=== PATIENT | female | born 1940 | race Caucasian/White ===

== ENCOUNTER 2018-04-07 08:45 | Outpatient (RCR) | payer MEDICARE, SELFPAY ==
--- NOTE | 2018-03-24 09:46 | NT_ITS ---
March 24, 2018 Valerie cancelled todays scheduled appt due to conflict in schedule. Reappointed for later date.
--- NOTE | 2018-03-30 09:23 | PTTR_ITS ---
DATE: 03/30/18 SUBJECTIVE: Valerie states that her back/ leg pain is slowly getting better. Her shlds are about the same. She really likes the pulleys and feels as though they are helpful. OBJECTIVE: Manual therapy: ([id number]). mobilizations of bilateral GH jt including posterior and inferior glides, caudal and lateral distractions. P/AAROM. CFM over anterior cuffs and STM t/o posterior cuff. PRT's of infraspinatus and teres region. LE distractions via leg pulls. Lumbopelvic ROM including SKTC, rotation in hooklying. Stretching of hamstring, ITB and piriformis. Therapeutic procedures ([id number]). * x See flow sheet: via wellness for AAROM and scap stabilizations. * x Ultrasound - (x 10 mins) - [id number]: to bilateral greater tuberosities x 5 min each at 50%pulsed, 1.1 w/cm2 and 3 MHZ Direct treatment time: 45 min Total treatment time: 60 min
--- NOTE | 2018-04-02 16:13 | PTTR_ITS ---
DATE: 04/02/18 SUBJECTIVE: Valerie arrived today with complaints that she continues to have significant pain in bilateral shoulders and right hip / thigh region. States that she has actually been having slight irritation in the left sided thigh region as well. Overall, feels like she is able to move her shoulders within a greater ROM. OBJECTIVE: Manual therapy: ([id number]). Did receive mobs of bilateral glenohumeral joints consisting of anterior and posterior glides, caudal distraction and AAROM throughout all planes. TFM was performed to the anterior cuff as well as positional release techniques to the posterior cuff while in supine. She also rec'd mobs of the right LE consisting of unilateral leg pulls as well as single knee to chest stretching and hook lying lumbar rotational stretching. Stretching of the hamstrings, IT bands and piriformis was also performed x3 repetitions x20 to 30 seconds each. Did perform 15 minutes of Wellness with assisted personnel at no charge. Ended treatment with cryotherapy to bilateral shoulders and moist heat to the low back x10 minutes while seated at no charge. * [x] Ultrasound - (x 5 mins) - [id number]: applied to bilateral anterior cuffs x5 each @3 megahertz 50% duty cycle @1.0 watt per cm sq while seated Direct treatment time: 45 minutes Total treatment time: 70 minutes SG/gc
--- NOTE | 2018-04-07 08:45 | PTTR_ITS ---
DATE: April 07, 2018 SUBJECTIVE: Valerie reports that she has made little to no gains since coming to PT. She is very frustrated with the amount of global joint pain and stiffness that she is having. Transfers are very difficult for her secondary to pain and inability to push herself up with her arms. She reports occasional fevers. She declines any tingling or numbness. She is sleeping very poorly secondary to being unable to get comfortable in any position. Pain number: 7/10 on VAS Pain Local: bilateral shoulders left greater then right, bilateral hips, LBP that radiates to bilateral calves. Current level of function: Limited ADL's secondary to pain. She reports of global arthralgias throughout her entire body. She is unable to lift anything, difficulty reaching away from her body. Limited transfers secondary to pain and stiffness. Has stopped bowling secondary to her irritation. Compliant with HEP: Yes , continues with ice and heat for pain reduction with minimal to no benefit. She is currently utilizing home ranger pulleys for ROM of her UE's. She continues to take her prescribed Ibp 800 mg with no relief. OBJECTIVE: Manual therapy: ([id number]).Upon reassessment demonstrates active glenohumeral flexion right 140 degrees, left 120 degrees with painful arc. Abduction right 90 degrees, left 75 degrees, IR functional reach right T9, left T10, ER 20 degrees bilaterally. PROM also remains limited secondary to pain and guarding throughout all planes. Active lumbar forward bend fingertips 2 inches below patella. Extension 20 degrees, Sidebending 2 inches above lateral joint line, Rotation limited by 50%. Her gait is non-antalgic without assistive device however slow with widened base of support. Strength: UE GH flexion right 4+/5, left 4-/5 with pain; abduction right 4/5, left 4-/5 with pain, ER right 3+/5, left 3+/5 with pain bilaterally, IR right 4 /5, left 4-/5 with pain. Bicep 4/5, Tricep 4/5 with pain. LE strength hip flexion 4+/5, knee extension 5/5, knee flexion 5/5, DF/PF 5/5. She is able to heel and toes walk with hand held assist for balance without difficulty. Neuro: Intact light touch. Declines paresthesias. Special Tests: + Empty can bilaterally, + Speeds left, - SLR for dural tension , Treatment: Reviewed HEP. Due to global arthralgias with minimal improvements have recommended follow up consultation with her PCP. Feel that further intervention is needed at this time. No formal follow up is set. She is going to contact her PCP upon leaving clinic today. She does have a scheduled follow up later next week. Going to see if they can get her in sooner. She will contact us to reschedule if needed. If no formal contact is made over the course of the next month duration will consider her discharged from our care at this time. Patient is also in agreement with this plan. Direct one on one 25 minutes Total Treatment 25 minutes
== END 2018-04-23 23:59 | disposition home or self-care (01) ==
LOC: PT 08:45
PROVIDERS: PCP Nurse Practitioner Family; Referring Provider Nurse Practitioner Family; Visit Provider Nurse Practitioner Family
DX: M75.41 Impingement syndrome of right shoulder (principal); M75.42 Impingement syndrome of left shoulder; G57.01 Lesion of sciatic nerve, right lower limb; M65.811 Other synovitis and tenosynovitis, right shoulder
CPT/HCPCS: 97035; 97140

== ENCOUNTER 2018-04-14 09:23 | Emergency (ER) | payer MEDICARE, SELFPAY ==
[2018-04-14 09:27] VITALS: BP 131/102; PULSE 86; RESP 18; TEMP 36.7; O2SAT 97
--- NOTE | 2018-04-14 10:27 | ED.GENADUL ---
Disposition Clinical Impression: Joint pain Disposition: HOME Condition: Fair Instructions: Musculoskeletal Pain (ED) Additional Instructions: Encourage hydration. Gentle stretching and frequent ambulation as advised by physical therapy. Please take Tylenol and ibuprofen as prescribed. Please keep upcoming appointment with your primary care. If you develop fever/chills, increased pain or other new/worsening symptoms please seek care urgently once again. We will contact you with any positive results from the screening of tickborne illnesses. Prescriptions: Acetaminophen [Tylenol Extra Strength] 1,000 mg PO QID PRN #20 tab PRN Reason: Pain Ibuprofen 600 mg PO QID PRN #20 tablet PRN Reason: Referrals: Yojana Stahl [Primary Care Provider] - Medical Decision Making - Lab Data Laboratory Tests 04/14/18 04/14/18 10:50 10:50 WBC 10.57 RBC 4.02 Hgb 12.4 Hct 37.0 MCV 92.0 MCH 30.8 MCHC 33.5 RDW 12.4 Plt Count 321 MPV 9.7 Immature Gran % 0.0 Neutrophils % 74.0 Lymphocytes % 16.0 Monocytes % 4.0 Eosinophils % 1.0 Basophils % 1.0 Absolute Neutrophils 7.93 H Band Neutrophils 1.0 Absolute Lymphocytes 2.01 Absolute Monocytes 0.42 Absolute Eosinophils 0.11 Absolute Basophils 0.11 Differential Comment Manual differential Atypical Lymphocytes 3 RBC Morphology Normal ESR 57 H Sodium 135 L Potassium 3.7 Chloride 100 Carbon Dioxide 27.3 Anion Gap 7.7 BUN 10 Creatinine 0.82 Estimated GFR/1.73 m2 >= 60.00 Glucose 106 H Calcium 9.1 Total Bilirubin 0.6 AST 19 ALT 27 Alkaline Phosphatase 84 C-Reactive Protein 1.87 H Total Protein 8.3 H Albumin 3.6 Results reviewed for labs ordered during visit: Yes - Medical Decision Making Patient presents today with chief complaint of global joint discomfort. Patient is endorsing pain in bilateral shoulders, upper extremities, hands, wrists, bilateral knees. Is also endorsing sciatica on the right side. Reports that she has been evaluated by primary care. There have been concerned for impingement syndrome of bilateral shoulders per patient report. They had also noticed sciatica at that time. Patient appears nontoxic. Vital signs are within normal limits. I did question her on possible tick exposures. She is unaware of any tick bites. She denies any rashes. No recent illness. Patient reports that primary care did perform laboratory testing 1 month ago. At that time, no Lyme panel was performed. We will obtain this today also include an ESR and CRP. I do not see any acute joint swelling. Patient feels that her hands are swollen but she does continue to wear her rings. No rashes noted. She will be given Tylenol and ibuprofen help with discomfort. Patient had questioned need for imaging of her multiple areas of discomfort. However, as she has not had any trauma and pain is so diffuse, I do not feel that this is appropriate or warranted at this time. Laboratory evaluation significant for CRP of 1.87, ESR 57. No leukocytosis. I discussed these findings with the patient and her family. I also contacted patient's primary care and advised him on her minimally elevated inflammatory markers. I do not see any acute abnormalities today. Patient was given ibuprofen and Tylenol and feels much improved. She is able to ambulate at this time unassisted. She is quite happy with the level of relief she has obtained while here. Advised she continue with this at home. A prescription will be given for ibuprofen and Tylenol at her request. At this point, as she responded so well I do not feel that stronger pain medication is indicated. Patient is in agreement with this plan. She has an appointment next week with primary care at which time she will discuss her diffuse discomfort further. Tick panel is still pending. Will call her with any positive results. We discussed new/worsening symptoms and when to seek care urgently once again. All of her questions and concerns were addressed and she is in agreement with this plan. History of Present Illness - General Chief complaint: Orthopedic Stated complaint: UNKNOWN Time Seen by Provider: 04/14/18 10:09 Source: patient, family, RN notes reviewed Mode of arrival: ambulatory Limitations: no limitations - History of Present Illness Initial comments: Patient is a 77-year-old female presenting today, coming by her granddaughter, with chief complaint of pain. Patient reports that for the past 1-2 months she has had fairly diffuse pain. States that initially began in the shoulders, left worse than right as well as right-sided sciatica. Reports that over the past 2 months the pain is progressively increased. She is now endorsing discomfort that radiates down her upper extremities. As noted pain in her wrists and hands. States that she is now having pain in bilateral knees. She denies any rash. No recent illness. No fevers or chills. Was seen by her primary care last month who advised physical therapy. Patient was last seen by physical therapy on 04/07/2018. At that point Valerie reports that she has made little to no pain since coming to PT. She is very frustrated with the amount of global joint pain stiffness she is having.. They reported that ambulation was difficult for her and she was having difficulty getting herself into an upright position from sitting. Patient was taking 800 mg ibuprofen as prescribed by primary care but reports that she ran out 4 days ago. Feels that the ibuprofen is doing a little to help with her discomfort. However, since cessation of the medication she reports that pain has greatly increased. States that she had to have assistance to stand up this morning. Granddaughter is able to help her. Patient reports she has an appointment with primary care next week. - Related Data Levothyroxine Sodium 88 mcg PO DAILY 08/28/13 Trazodone HCl 50 mg PO HS 08/28/13 Metoprolol/Hydrochlorothiazide [Metoprolol-Hctz 50-25 mg Tab] 0.5 tab PO BID 06/26/17 Oxybutynin Chloride [Ditropan Xl] 10 mg PO BID 06/26/17 Acetaminophen [Tylenol Extra Strength] 1,000 mg PO QID PRN #20 tab 04/14/18 Ibuprofen 600 mg PO QID PRN #20 tablet 04/14/18 Allergies Allergy/AdvReac Type Severity Reaction Status Date / Time No Known Allergies Allergy Unverified 04/14/18 09:32 Review of Systems Constitutional: no symptoms reported, see HPI. denies: chills, fever, malaise, weakness (Patient reports she has had difficulty with ambulation, particularly today, but associates this with the pain not extremity weakness. No weakness was noted on exam.) Respiratory: no symptoms reported Cardiovascular: denies: chest pain, palpitations Gastrointestinal: denies: abdominal pain, nausea, vomiting Genitourinary: denies: urgency (Denies change in urinary habits) Musculoskeletal: as per HPI Skin: denies: rash, lesions Neurological: as per HPI, abnormal gait. denies: headache, weakness, numbness, paresthesias Past Medical History - Past Medical History Medical history: AFIB, hyperlipidemia, hypertension Hypothyroidism,Dementia, osteopenia, Psychiatric history: depression General Exam - General Limitations: no limitations General appearance: alert, in no apparent distress - Head Head exam: Present: atraumatic - Eye Eye exam: Present: normal apperance - Neck Neck exam: Present: normal inspection - Respiratory Respiratory exam: Present: normal lung sounds bilaterally. Absent: respiratory distress - Cardiovascular Cardiovascular Exam: Present: regular rate, normal rhythm, normal heart sounds - Extremities Exam Extremities exam: Present: tenderness (Patient has diffuse discomfort with palpation about the extremities, particularly the upper extremities around the shoulders. Range of motion is limited secondary to discomfort), normal capillary refill. Absent: normal inspection, full ROM, joint swelling (No swelling or discoloration is appreciated on exam) - Back Exam Back exam: Present: tenderness (Diffuse discomfort with palpation. Seems to be primarily lower back. No midline discomfort) - Neurological Exam Neurological exam: Present: alert, abnormal gait (Patient is currently in a wheelchair). Absent: motor sensory deficit (No saddle paresthesias. 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
[2018-04-14] MEDS: Ibuprofen 600 MG TAB PO (10:31)
[2018-04-14] MEDS: Acetaminophen 500 MG TAB 1000 MG PO (10:32)
[2018-04-14 11:00] LABS: HGB 12.4 g/dL (12.0-15.5); Mean Corp. HGB Concentration 33.5 g/dL (32.0-36.0); Mean Corpuscular Hemoglobin 30.8 pg (27.0-33.0); Mean Platelet Volume 9.7 fL (8.0-11.0); Platelet Count 321 x1000/uL (130-400); RBC 4.02 m/cumm (4.00-5.20); RBC Distribution Width 12.4 % (11.7-14.6); White Blood Cell Count 10.57 k/cumm (4.4-10.8)
[2018-04-14 11:08] LABS: ALT 27 U/L (12-78); AST 19 U/L (15-37); Albumin 3.6 g/dL (3.4-5.0); Alkaline Phosphatase 84 U/L (46-116); Anion Gap 7.7 mmol/L (3-11); BUN 10 mg/dL (7-18); Bilirubin, Total 0.6 mg/dL (0.2-1.0); C-Reactive Protein 1.87 mg/dL (0.0-0.3); CO2 27.3 mmol/L (21.0-32.0); CREATININE 0.82 mg/dL (0.55-1.02); Calcium 9.1 mg/dL (8.5-10.1); Chloride 100 mmol/L (98-107); Glucose 106 mg/dL (70-100); Potassium 3.7 mmol/L (3.5-5.1); Sodium 135 mmol/L (136-145); Total Protein 8.3 g/dL (6.4-8.2)
[2018-04-14 11:27] LABS: Absolute Basophil Count 0.11 k/cumm (0.0-0.2); Absolute Eosinophil Count 0.11 k/cumm (0.0-0.7); Absolute Lymphocyte Count 2.01 k/cumm (1.2-3.4); Absolute Monocyte Count 0.42 k/cumm (0.11-0.7); Absolute Neutrophil Count 7.93 k/cumm (1.2-6.7); Atypical Lymphocytes % 3
[2018-04-14 11:28] LABS: Diff Comment Manual Differential; RBC Morphology Normal
[2018-04-14 11:37] LABS: ESR 57 MM/HR (0-30)
[2018-04-14 12:38] VITALS: BP 129/85; PULSE 79; RESP 16; TEMP 37; O2SAT 98
[2018-04-15 14:40] LABS: Lyme Ab w Rflx to Lyme Confirm Negative
[2018-04-16 01:33] LABS: Anaplasma phagocytophilum Negative (Negative); B. miyamotoi PCR Negative (Negative); Babesia divergens/MO-1 Negative (Negative); Babesia duncani Negative (Negative); Babesia microti Negative (Negative); Ehrlichia chaffeensis Negative (Negative); Ehrlichia ewingii/canis Negative (Negative); Ehrlichia muris eauclairensis Negative (Negative)
== END 2018-04-14 12:44 | disposition home or self-care (01) ==
PROVIDERS: Physician Assistant; Emergency Provider Physician Assistant; PCP Nurse Practitioner Family
DX: M25.50 Pain in unspecified joint (principal); I10 Essential (primary) hypertension
CPT/HCPCS: 99282; 99283; 36415; 80053; 85652; 85025; 86140; 86618; 87798

== ENCOUNTER → 2018-04-20 13:10 | Outpatient (CLI) | payer MEDICARE, SELFPAY ==
[2018-04-21 10:19] LABS: Rheumatoid Factor <8 IU/mL (<12.5)
== END ==
PROVIDERS: PCP Nurse Practitioner Family; Visit Provider Nurse Practitioner Family
DX: M25.511 Pain in right shoulder (principal); M25.512 Pain in left shoulder
CPT/HCPCS: 36415; 86431

== ENCOUNTER 2018-09-20 11:44 | Outpatient (CLI) | payer MEDICARE, SELFPAY ==
[2018-09-20 12:50] LABS: HCT 42.7 % (36.0-46.0); HGB 14.5 g/dL (12.0-15.5); Mean Corpuscular Hemoglobin 32.2 pg (27.0-33.0); Mean Corpuscular Volume 94.7 fL (80-95); Mean Platelet Volume 10.4 fL (8.0-11.0); Platelet Count 271 x1000/uL (130-400); RBC 4.51 m/cumm (4.00-5.20); RBC Distribution Width 12.4 % (11.7-14.6); White Blood Cell Count 8.53 k/cumm (4.4-10.8)
[2018-09-20 12:59] LABS: ESR 15 MM/HR (0-30)
[2018-09-20 13:01] LABS: BUN 20 mg/dL (7-18); CREATININE 1.01 mg/dL (0.55-1.02); Calcium 9.4 mg/dL (8.5-10.1); Glucose 182 mg/dL (70-100)
[2018-09-20 13:02] LABS: ALT 49 U/L (12-78); AST 28 U/L (15-37); Albumin 3.7 g/dL (3.4-5.0); Alkaline Phosphatase 69 U/L (46-116); Anion Gap 10.8 mmol/L (3-11); Bilirubin, Total 0.4 mg/dL (0.2-1.0); C-Reactive Protein 0.55 mg/dL (0.0-0.3); CO2 28.2 mmol/L (21.0-32.0); Chloride 102 mmol/L (98-107); Estimated GFR 53.29 (mL/min/1.73m2); Potassium 3.8 mmol/L (3.5-5.1); Sodium 141 mmol/L (136-145); Total Protein 7.3 g/dL (6.4-8.2)
== END 2018-09-20 12:04 ==
PROVIDERS: PCP Nurse Practitioner Family; Visit Provider Internal Medicine Rheumatology
DX: M35.3 Polymyalgia rheumatica (principal); Z79.52 Long term (current) use of systemic steroids
CPT/HCPCS: 36415; 80053; 85027; 85652; 86140

== ENCOUNTER 2018-12-08 14:05 | Outpatient (REF) | payer MEDICARE, SELFPAY ==
[2018-12-08 19:02] LABS: Bilirubin Negative (Negative); Blood Trace-lysed (Negative); Clarity Sl Cloudy; Glucose Negative (Negative); Ketones Negative (Negative); Leukocyte Esterase Trace (Negative); Nitrite Positive (Negative); Specific Gravity 1.025 (1.005-1.025); Urobilinogen 0.2 EU/dL (Up TO 0.2); pH 5.5 (5-8)
[2018-12-08 19:10] LABS: Bacteria Many HPF (Negative); C & S Indicated? Yes; WBC 20-50 HPF (0-5)
== END 2018-12-08 14:25 ==
LOC: NCHCN 14:05
PROVIDERS: PCP Nurse Practitioner Family; Visit Provider Nurse Practitioner Family
DX: R30.0 Dysuria (principal)
CPT/HCPCS: 87077; 81003; 81015; 87086; 87186

== ENCOUNTER 2019-01-03 12:11 | Outpatient (CLI) | payer MEDICARE, SELFPAY ==
[2019-01-03 12:58] LABS: HCT 41.1 % (36.0-46.0); Mean Corp. HGB Concentration 34.1 g/dL (32.0-36.0); Mean Corpuscular Hemoglobin 32.1 pg (27.0-33.0); Mean Corpuscular Volume 94.3 fL (80-95); Mean Platelet Volume 10.5 fL (8.0-11.0); Platelet Count 245 x1000/uL (130-400); RBC 4.36 m/cumm (4.00-5.20); RBC Distribution Width 12.1 % (11.7-14.6); White Blood Cell Count 8.06 k/cumm (4.4-10.8)
[2019-01-03 13:19] LABS: ALT 75 U/L (12-78); AST 40 U/L (15-37); Albumin 3.8 g/dL (3.4-5.0); Alkaline Phosphatase 63 U/L (46-116); Anion Gap 9.8 mmol/L (3-11); BUN 25 mg/dL (7-18); Bilirubin, Total 0.4 mg/dL (0.2-1.0); C-Reactive Protein 0.23 mg/dL (0.0-0.3); CO2 27.2 mmol/L (21.0-32.0); Calcium 9.6 mg/dL (8.5-10.1); Chloride 101 mmol/L (98-107); Estimated GFR 53.91 (mL/min/1.73m2); Glucose 136 mg/dL (70-100); Potassium 4.1 mmol/L (3.5-5.1); Sodium 138 mmol/L (136-145); Total Protein 7.4 g/dL (6.4-8.2)
[2019-01-03 14:00] LABS: ESR 10 MM/HR (0-30)
== END 2019-01-03 12:31 ==
PROVIDERS: PCP Nurse Practitioner Family; Visit Provider Internal Medicine Rheumatology
DX: M35.3 Polymyalgia rheumatica (principal); Z79.52 Long term (current) use of systemic steroids
CPT/HCPCS: 36415; 80053; 85027; 85652; 86140

== ENCOUNTER 2019-02-07 01:38 | Outpatient (CLI) | payer MEDICARE, SELFPAY ==
--- NOTE | 2019-02-07 09:41 | DI.CT_ITS ---
SYMPTOM/DIAGNOSIS: RECURRENT UTI N39.[address] ABDOMEN AND PELVIS: Comparison is made with 22 February 2011. Images were performed from the lung bases through the ischial tuberosities without IV or oral contrast. The heart size is normal. Coronary artery calcifications are seen. The lung bases are clear. The liver shows extremely low density consistent with fatty infiltration. No focal liver lesions are seen. The patient is status post cholecystectomy. There is no biliary dilatation. There is a small hiatal hernia. The appendix appears normal There are several diverticula in the descending and sigmoid colon but no evidence of diverticulitis. The patient is status post hysterectomy. The urinary bladder is empty and not well evaluated. There is a suggestion of diffuse wall thickening and trabeculation. No renal calculi or hydronephrosis is seen. There is no evidence of a renal mass or perinephric collection. The adrenals, spleen and pancreas are unremarkable. The aorta shows calcification and is normal in diameter. IMPRESSION: 1. Diffuse bladder wall thickening and trabeculation. The bladder is suboptimally evaluated as it is nearly empty. 2. Extreme fatty infiltration of the liver.
== END 2019-02-07 01:58 ==
PROVIDERS: PCP Nurse Practitioner Family; Visit Provider Urology
DX: N39.0 Urinary tract infection, site not specified (principal); N32.89 Other specified disorders of bladder; K76.0 Fatty (change of) liver, not elsewhere classified; K44.9 Diaphragmatic hernia without obstruction or gangrene
CPT/HCPCS: 74176

== ENCOUNTER 2019-03-01 14:42 | Outpatient (REF) | payer MEDICARE, SELFPAY ==
[2019-03-01 18:54] LABS: HCT 41.1 % (36.0-46.0); HGB 14.2 g/dL (12.0-15.5); Mean Corp. HGB Concentration 34.5 g/dL (32.0-36.0); Mean Corpuscular Hemoglobin 32.2 pg (27.0-33.0); Mean Corpuscular Volume 93.2 fL (80-95); Mean Platelet Volume 11.4 fL (8.0-11.0); Platelet Count 189 x1000/uL (130-400); RBC 4.41 m/cumm (4.00-5.20); RBC Distribution Width 12.2 % (11.7-14.6); White Blood Cell Count 7.12 k/cumm (4.4-10.8)
[2019-03-01 19:20] LABS: ALT 95 U/L (12-78); AST 47 U/L (15-37); Albumin 3.8 g/dL (3.4-5.0); Alkaline Phosphatase 73 U/L (46-116); Anion Gap 13.2 mmol/L (3-11); BUN 18 mg/dL (7-18); Bilirubin, Total 0.3 mg/dL (0.2-1.0); C-Reactive Protein 0.21 mg/dL (0.0-0.3); CO2 23.8 mmol/L (21.0-32.0); CREATININE 0.85 mg/dL (0.55-1.02); Calcium 9.4 mg/dL (8.5-10.1); Chloride 102 mmol/L (98-107); Glucose 163 mg/dL (70-100); Potassium 3.6 mmol/L (3.5-5.1); Sodium 139 mmol/L (136-145); TSH (W/Ref FT4) 1.13 uIU/mL (0.358-3.74); Total Protein 7.3 g/dL (6.4-8.2)
[2019-03-01 19:42] LABS: ESR 17 MM/HR (0-30)
== END 2019-03-01 15:02 ==
LOC: NCHCN 14:42
PROVIDERS: PCP Nurse Practitioner Family; Visit Provider Nurse Practitioner Family
DX: E03.9 Hypothyroidism, unspecified (principal); I10 Essential (primary) hypertension; M35.3 Polymyalgia rheumatica
CPT/HCPCS: 80053; 85027; 85652; 84443; 86140

== ENCOUNTER 2019-08-30 14:57 | Outpatient (REF) | payer MEDICARE, SELFPAY ==
[2019-08-30 19:12] LABS: PROTEIN < 6.0 mg/dL
[2019-08-30 19:16] LABS: COMMENT (LAB VIEW ONLY) 20.96 mg/dL; Microalb ug/mg Crea 9.5 ug/mg Cr
[2019-08-30 19:20] LABS: COMMENT (LAB VIEW ONLY) 22.24 mg/dL
== END 2019-08-30 15:17 ==
LOC: NCHCN 14:57
PROVIDERS: PCP Nurse Practitioner Family; Visit Provider Nurse Practitioner Family
DX: I10 Essential (primary) hypertension (principal)
CPT/HCPCS: 82043; 82565; 82570; 84156

== ENCOUNTER 2020-05-14 11:59 | Outpatient (REF) | payer MEDICARE, SELFPAY ==
[2020-05-14 19:01] LABS: Abs Immature Grans 0.02 10^3/uL (0.0-0.06); Absolute Basophil Count 0.05 10^3/uL (0.0-0.2); Absolute Eosinophil Count 0.22 10^3/uL (0.0-0.7); Absolute Lymphocyte Count 2.06 10^3/uL (1.2-3.4); Absolute Neutrophil Count 4.38 10^3/uL (1.2-6.7); Basophils % 0.7; HCT 40.7 % (36.0-46.0); HGB 13.8 g/dL (11.2-15.7); Immature Grans % 0.3; Lymphocytes % 28.5; MCH 31.5 pg (27.0-33.0); MCHC 33.9 % (32.0-36.0); MCV 92.9 fL (80-95); MPV 11.6 fL (8.0-11.0); Monocytes % 6.9; Neutrophils % 60.6; Nucleated RBC 0 %; Platelet Count 300 10^3/uL (130-400); RBC 4.38 10^6/uL (3.93-5.22); RDW 11.9 % (11.7-14.6); RDW-SD 40.9 fL; WBC 7.23 10^3/uL (4.4-10.8)
[2020-05-14 19:23] LABS: ALT 94 U/L (14-59); AST 138 U/L (15-37); Albumin 3.5 g/dL (3.4-5.0); Alkaline Phosphatase 83 U/L (46-116); BUN 10 mg/dL (7-18); Bilirubin, Total 0.6 mg/dL (0.2-1.0); CREATININE 0.87 mg/dL (0.55-1.02); Chloride 101 mmol/L (98-107); Glucose 162 mg/dL (74-106); Potassium 3.4 mmol/L (3.5-5.1); Sodium 138 mmol/L (136-145); TSH (W/Ref FT4) 4.56 uIU/mL (0.36-3.74); Total Protein 7.6 g/dL (6.4-8.2)
== END 2020-05-14 12:19 ==
LOC: NCHCN 11:59
PROVIDERS: PCP Nurse Practitioner Family; Visit Provider Nurse Practitioner Family
DX: I10 Essential (primary) hypertension (principal); E03.9 Hypothyroidism, unspecified; L98.8 Other specified disorders of the skin and subcutaneous tissue
CPT/HCPCS: 80053; 87077; 84439; 84443; 85025; 87070; 87186; 87205

== ENCOUNTER 2020-06-28 00:37 | Outpatient (CLI) | payer MEDICARE, SELFPAY ==
--- NOTE | 2020-06-28 | DI.CT_ITS ---
EXAM: CT CHEST W CLINICAL HISTORY: SMOKER,F17.201,ANOREXIA,R63.0,NIGHT SWEATS,R61,DYSPNEA,R06.00 TECHNIQUE: Imaging Protocol: Axial computed tomography images with coronal and sagittal reformatted images were created and reviewed CONTRAST MATERIAL: Intravenous: Omnipaque 350 Contrast volume:70 mL. COMPARISON: CT CT ABDOMEN PELVIS WO from 02/07/2019 FINDINGS: Tracheobronchial tree: Patent where visualized. Mediastinum and Alexandra: No dominant adenopathy or fluid collection. Small hiatal hernia. Pulmonary parenchyma: No consolidation or dominant measurable mass. No architectural distortion. Pleura: No effusion or pneumothorax. Heart: The heart is not dilated. Moderate coronary artery calcification is present. There is calcifi cation of both the mitral and aortic valves. No significant pericardial effusion is present. Aorta: Thoracic aorta non-dilated. Atherosclerosis. Upper abdomen: Diffuse fatty infiltration of the liver. Status post cholecystectomy. The common du ct measures 1.2 cm. This is unchanged compared to the CT scan from 02/07/2019. This likely is due to the post cholecystectomy state. Lymph nodes: Within normal limits. Bones: Degenerative changes are present in the spine. Soft tissues: Unremarkable. IMPRESSION: 1. No evidence of a pulmonary mass or thoracic adenopathy. 2. Hepatic steatosis. Status post cholecystectomy. 3. Atherosclerosis and coronary artery calcifications. RADIATION DOSE DELIVERED: 803.84mGy.cm Total DLP DATA REPOSITORY: All CT scans at this facility are submitted to the National Radiology Data Registry (NRDR) Dose Index Registry (DIR) with the [employer] (ACR). RADIATION OPTIMIZATION: All CT scans at this facility use at least one of these dose optimization te chniques: automated exposure control; mA and/or kV adjustment per patient size (includes targeted exa ms where dose is matched to clinical indication); or iterative reconstruction.
[2020-06-28] MEDS: Normal Saline - Diluent 50 ML VIAL IV (15:46)
[2020-06-28] MEDS: Omnipaque 350 MG/ML 100 ML BTL 70 ML IJ (15:46)
[2020-06-29 15:59] LABS: Creatine Kinase 89 U/L (26-192)
== END 2020-06-28 00:57 ==
PROVIDERS: PCP Nurse Practitioner Family; Visit Provider Nurse Practitioner Family
DX: R06.00 Dyspnea, unspecified (principal); F17.201 Nicotine dependence, unspecified, in remission; R61 Generalized hyperhidrosis; R63.0 Anorexia; K76.0 Fatty (change of) liver, not elsewhere classified; I25.10 Atherosclerotic heart disease of native coronary artery without angina pectoris; R79.89 Other specified abnormal findings of blood chemistry
CPT/HCPCS: 82550; 71260; 82565; J3490

== ENCOUNTER 2020-08-06 08:48 | Day surgery (SDC) | payer MEDICARE, SELFPAY ==
[2020-08-06 09:24] VITALS: BP 130/80; PULSE 86; RESP 16; TEMP 36.3; O2SAT 96
[2020-08-06] MEDS: Tropicam./Phenyleph. (1/2.5%) 5 ML BTL ×3 (09:32→09:42)
[2020-08-06] MEDS: Duovisc Viscoelastic System EACH 1 EACH (10:39)
[2020-08-06] MEDS: Balanced Salt Soln.-PLUS 500 ML BAG (10:39)
[2020-08-06] MEDS: Lidocaine 1% Pres-Free 5 ML VIAL (10:40)
[2020-08-06] MEDS: Lidocaine 2% Jelly 6 ML SYR (10:41)
[2020-08-06] MEDS: Povidone-Iodine Ophth 30 ML BTL (10:42)
[2020-08-06] MEDS: Tetracaine 0.5% 4 ML BTL (10:43)
--- NOTE | 2020-08-06 11:07 | W.PM.DSUDISC ---
Discharge Plan Disposition Patient Disposition: HOME Condition: Good Discharge Details Attending Provider: Nathanael Mendez Primary Care Provider: Miguel Escamilla Home Meds and New Rx's Prescriptions: No Action trazodone 100 MG tablet 50 mg PO HS RF: 0 levothyroxine 88 MCG tablet 88 mcg PO DAILY RF: 0 oxybutynin chloride [Ditropan XL] 10 MG tablet extended release 24hr 50 mg PO DAILY RF: 0 metoprolol ta-hydrochlorothiaz 1 EACH tablet 0.5 tab PO BID RF: 0 prednisolone 5 mg Tablet 5 mg RF: 0 acetaminophen [Mapap Extra Strength] 500 MG tablet 1,000 mg PO QID PRN (Reason: Pain) Qty: 20 RF: 0 ibuprofen 600 MG tablet 600 mg PO QID PRNQty: 20 RF: 0 Discharge Instructions Stand Alone Forms: Post-op Topical Cataract, Rebeca Latif (DSU) Discharge Orders Discharge Orders: Discharge Order (Routine); Ordered 08/06/20 Ordered By: Nathanael Mendez DS: Diagnosis Discharge Diagnosis (1) Nuclear sclerotic cataract of right eye: Status: Resolved
--- NOTE | 2020-08-06 11:08 | W.PM.OP ---
Date of service: 08/06/20 Time of Service: 11:08 Operative Note Operative Note DATE OF PROCEDURE: 08/06/20 PRE-OP DIAGNOSIS: Nuclear cataract, right eye POST-OP DIAGNOSIS: same PROCEDURE: Cataract extraction using phacoemulsification with intraocular lens implant, right eye SURGEON: Nathanael Mendez ANESTHESIA: MAC and local (sub-tenon's anesthetic infiltration) ESTIMATED BLOOD LOSS: 0 PATHOLOGY: none sent COMPLICATIONS: None Patient was transported to: same day Patient's condition: stable Implants: [employer] / [employer] Tecnis [id number] intraocular lens Indications: Progressive decreased vision due to cataract, right eye Procedure Description: CATARACT SURGERY OPERATIVE REPORT PREOPERATIVE DIAGNOSIS: Nuclear cataract, right eye POSTOPERATIVE DIAGNOSIS: Same OPERATION: Cataract extraction using phacoemulsification with posterior chamber intraocular lens implant, right eye. IOL: IOL Precision Jig Grinder/Model: [employer] / AMAURY Tecnis ZCB00 IOL Power: + 26.0 diopters IOL Serial Number: [id number] Optic Diameter: 6.0mm Haptic/Overall Diameter: 13.0mm PHACO INFO: [employer] Vision System with OZil and Active [employer]uidics Cumulative Dispersed Energy (CDE): 9.31 seconds SURGEON: Nathanael Mendez MD, NILSA ANESTHESIA: Monitored Anesthesia Care (MAC), with local sub-tenon's anesthetic infiltration COMPLICATIONS: None SPECIMENS: None INDICATIONS FOR PROCEDURE: The patient is a 79-year-old lady with history of narrow angles who is status post laser iridotomy in both eyes. She has developed significant bilateral nuclear cataract. She is significantly symptomatic that she desires cataract surgery and attempt to improve and maximize her vision. PROCEDURE: The correct surgical eye was identified and marked as the right eye and the pupil was dilated in the preoperative area using mydriatics and cycloplegics. The dilated pupil size was 6.0 mm. Oral sedation was administered in the form of an Imprimis MKO Melt (midazolam 3mg/ketamine 25mg/ondansetron 2mg). The patient was brought to the operating room where cardiopulmonary monitoring was instituted and surgical time-out was performed, confirming the correct operative eye and IOL power. Topical anesthesia was administered and ophthalmic povidone-iodine 5% was instilled into the conjunctival fornices. Lidocaine gel was applied to the cornea and the юлия-ocular area was prepped with Betadine 10% solution and draped in the usual sterile fashion for intraocular surgery, including an aperture drape. A Tegaderm transparent film dressing was cut in half and used to cover the lashes and lid margins. Care was taken to sequester the lashes and lid margins under the Tegaderm dressing. A lid speculum was placed between the lids of the operative eye and the Dora-Osmel operating microscope was maneuvered into position. Heath scissors were then used to make a conjunctival buttonhole approximately 6mm posterior to the limbus in the inferonasal quadrant. Blunt dissection was carried out to expose bare sclera, and a blunt-tipped sub-tenon?s anesthesia cannula was introduced and passed posteriorly along the globe where non-preserved plain lidocaine was injected into posterior sub-Tenon?s space. A sideport knife was used to make a paracentesis port inferiortemporally. Intraocular phenylephrine/lidocaine was injected into the anterior chamber. The anterior chamber was then filled with viscoelastic. The anterior chamber was noted to be quite shallow. A 2.4mm keratome knife was used to create a half-thickness groove at the limbus and then to construct a three-plane near-clear corneal tunnel extending 2.0mm into clear cornea in the superiortemporal position. . A flap was raised on the anterior capsule and capsulorhexis forceps were used to complete a continuous curvilinear capsulorhexis of 4.8 mm. Balanced salt solution was then used to perform cortical cleaving hydrodissection and nuclear hydrodelineation until the lens could be freely rotated within the capsular bag. Additional Viscoat was then injected into the central anterior chamber. The lens nucleus was then disassembled and removed within the capsular bag and iris plane using phacoemulsification. Residual cortical material was removed using the I/A handpiece. The posterior capsule was carefully polished to remove as much residual lens epithelial cells as safely possible. The capsular bag was then inflated and the anterior chamber deepened with viscoelastic. The lens implant described above was inserted into the capsular bag using the AMAURY [place] Injector. A Kuglen hook was used to dial the IOL into position. Residual viscoelastic was then removed first from posterior to the IOL, then from the anterior chamber using the I/A handpiece. The lens implant was noted to center nicely within the capsular bag. The incisions were stromally hydrated, and the anterior chamber was reformed using BSS. Then 0.5cc of moxifloxacin 1.0mg/ml were injected into the capsular bag and anterior chamber. The incisions were checked with a Weck spear and found to be secure. Several drops of ophthalmic povidone-iodine 5% were then applied to the eye followed by two drops of Imprimis combination prednisolone/moxifloxacin/nepafenac solution. The drapes were removed and a clear plastic protective eye shield was placed over the eye. The patient was then returned to [facility] in stable condition.
[2020-08-06 11:33] VITALS: BP 118/59; PULSE 83; RESP 20; TEMP 36.9; O2SAT 94
== END 2020-08-06 11:45 | disposition home or self-care (01) ==
PROVIDERS: PCP Nurse Practitioner Family; Visit Provider Ophthalmology
PROC: (CPT 66984; principal; 2020-08-06 10:30)
DX: H25.11 Age-related nuclear cataract, right eye (principal); I10 Essential (primary) hypertension; E03.9 Hypothyroidism, unspecified
CPT/HCPCS: 66984; V2632

== ENCOUNTER 2020-08-20 08:00 | Day surgery (SDC) | payer MEDICARE, SELFPAY ==
[2020-08-20 08:24] VITALS: BP 141/82; PULSE 84; RESP 18; TEMP 36; O2SAT 94
[2020-08-20] MEDS: Tropicam./Phenyleph. (1/2.5%) 5 ML BTL OS ×3 (08:42→08:51)
[2020-08-20] MEDS: Lidocaine 1% Pres-Free 5 ML VIAL (09:45)
[2020-08-20] MEDS: Tetracaine 0.5% 4 ML BTL OS (09:45)
[2020-08-20] MEDS: Lidocaine 2% Jelly 6 ML SYR (09:46)
[2020-08-20] MEDS: Povidone-Iodine Ophth 30 ML BTL ×2 (09:46→10:23)
[2020-08-20] MEDS: Balanced Salt Soln.-PLUS 500 ML BAG (09:53)
[2020-08-20] MEDS: Duovisc Viscoelastic System EACH 1 EACH (09:54)
--- NOTE | 2020-08-20 10:33 | ROE_ITS ---
Date of service: 08/20/20 Time of Service: 10:34 Operative Note Operative Note DATE OF PROCEDURE: 08/20/20 PRE-OP DIAGNOSIS: Nuclear cataract, left eye POST-OP DIAGNOSIS: same PROCEDURE: Cataract extraction using phacoemulsification with intraocular lens implant, left eye SURGEON: Nathanael Mendez ANESTHESIA: MAC and local (sub-tenon's anesthetic infiltration) PATHOLOGY: none sent COMPLICATIONS: None Patient was transported to: same day Patient's condition: stable Implants: Bennie [employer] / [employer] Tecnis ZCB00 Indications: Progressive decreased vision due to cataract, left eye Procedure Description: CATARACT SURGERY OPERATIVE REPORT PREOPERATIVE DIAGNOSIS: Nuclear cataract, left eye Shallow anterior chamber, left eye POSTOPERATIVE DIAGNOSIS: Same OPERATION: Cataract extraction using phacoemulsification with posterior chamber intraocular lens implant, left eye. IOL: IOL Joint Finisher/Model: [employer] Vision / AMAURY Tecnis ZCB00 IOL Power: + 25.5 diopters IOL Serial Number: [id number] Optic Diameter: 6.0mm Haptic/Overall Diameter: 13.0mm PHACO INFO: Krzysztof OpenRoad Integrated Mediaurion Vision System with OZil and Active Fluidics Cumulative Dispersed Energy (CDE): 10.65 seconds SURGEON: Nathanael Mendez MD, NILSA ANESTHESIA: Monitored Anesthesia Care (MAC), with local sub-tenon's anesthetic infiltration COMPLICATIONS: None SPECIMENS: None INDICATIONS FOR PROCEDURE: The patient is a 80-year-old lady with history of diminished visual acuity in both eyes secondary to the development of significant bilateral nuclear cataract. She has a history of narrow angles and has undergone laser iridotomy. She has already undergone cataract surgery in her right eye and is doing well postoperatively. She now presents for cataract surgery in the left eye. PROCEDURE: The correct surgical eye was identified and marked as the left eye and the pupil was dilated in the preoperative area using mydriatics and cycloplegics. The dilated pupil size was 6.5 mm. Oral sedation was administered in the form of an Imprimis MKO Melt (midazolam 3mg/ketamine 25mg/ondansetron 2mg). The patient was brought to the operating room where cardiopulmonary monitoring was instituted and surgical time-out was performed, confirming the correct operative eye and IOL power. Topical anesthesia was administered and ophthalmic povidone-iodine 5% was instilled into the conjunctival fornices. Lidocaine gel was applied to the cornea and the юлия-ocular area was prepped with Betadine 10% solution and draped in the usual sterile fashion for intraocular surgery, including an aperture drape. A Tegaderm transparent film dressing was cut in half and used to cover the lashes and lid margins. Care was taken to sequester the lashes and lid margins under the Tegaderm dressing. A lid speculum was placed between the lids of the operative eye and the Dora-Osmel operating microscope was maneuvered into position. Patient had significant squeezing/blepharospasm. A Steri-Strip was used to isolate the upper lid margin from the surgical field. Heath scissors were then used to make a conjunctival buttonhole approximately 6mm posterior to the limbus in the inferonasal quadrant. Blunt dissection was carried out to expose bare sclera, and a blunt-tipped sub-tenon?s anesthesia cannula was introduced and passed posteriorly along the globe where non- preserved plain lidocaine was injected into posterior sub-Tenon?s space. A sideport knife was used to make a paracentesis port superior/superiortemporally. Intraocular phenylephrine/lidocaine was injected into the anterior chamber. The anterior chamber was then filled with Krzysztof Viscoat viscoelastic. A 2.4mm keratome knife was used to create a half-thickness groove at the limbus and then to construct a three-plane near-clear corneal tunnel extending 2.0mm into clear cornea in the temporal position. . A flap was raised on the anterior capsule and capsulorhexis forceps were used to complete a continuous curvilinear capsulorhexis of 5.0 mm. Balanced salt solution was then used to perform cortical cleaving hydrodissection and nuclear hydrodelineation until the lens could be freely rotated within the capsular bag. Additional viscoelastic was injected into the central anterior chamber to protect the corneal endothelium the lens nucleus was then disassembled and removed within the capsular bag and iris plane using phacoemulsification. Residual cortical material was removed using the 45-degree angled silicone I/A tip with 0.3mm port. The posterior capsule was carefully polished to remove as much residual lens epithelial cells as safely possible. The capsular bag was then inflated and the anterior chamber deepened with viscoelastic. The lens implant described above was inserted into the capsular bag using the AMAURY [place] Injector. A Kuglen hook was used to dial the IOL into position. Residual viscoelastic was then removed first from posterior to the IOL, then from the anterior chamber using the I/A handpiece. The lens implant was noted to center nicely within the capsular bag. The incisions were stromally hydrated, and the anterior chamber was reformed using BSS. Then 0.1cc of moxifloxacin 5.0mg/ml were injected into the capsular bag and anterior chamber. The incisions were checked with a Weck spear and found to be secure. Several drops of ophthalmic povidone-iodine 5% were then applied to the eye followed by two drops of Imprimis combination prednisolone/moxifloxacin/nepafenac solution. The drapes were removed and a clear plastic protective eye shield was placed over the eye. The patient was then returned to [facility] Surgery in stable condition.
--- NOTE | 2020-08-20 10:33 | W.PM.DSUDISC ---
Discharge Plan Disposition Patient Disposition: HOME Condition: Good Discharge Details Attending Provider: Nathanael Mendez Primary Care Provider: Miguel Escamilla Home Meds and New Rx's Prescriptions: No Action trazodone 100 MG tablet 50 mg PO HS RF: 0 levothyroxine 88 MCG tablet 88 mcg PO DAILY RF: 0 oxybutynin chloride [Ditropan XL] 10 MG tablet extended release 24hr 50 mg PO DAILY RF: 0 metoprolol ta-hydrochlorothiaz 1 EACH tablet 0.5 tab PO BID RF: 0 prednisone 5 mg tablet 5 mg PO DAILY RF: 0 acetaminophen [Mapap Extra Strength] 500 MG tablet 1,000 mg PO QID PRN (Reason: Pain) Qty: 20 RF: 0 ibuprofen 600 MG tablet 600 mg PO QID PRNQty: 20 RF: 0 Discharge Instructions Stand Alone Forms: Post-op Topical Cataract, Rebeca Parksey (DSU) Discharge Orders Discharge Orders: Discharge Order (Routine); Ordered 08/20/20 Ordered By: Nathanael Mendez DS: Diagnosis Discharge Diagnosis (1) Nuclear sclerotic cataract of left eye: Status: Resolved
[2020-08-20 10:48] VITALS: BP 115/74; PULSE 87; RESP 18; TEMP 37.1; O2SAT 94
== END 2020-08-20 11:02 | disposition home or self-care (01) ==
PROVIDERS: PCP Nurse Practitioner Family; Visit Provider Ophthalmology
PROC: (CPT 66984; principal; 2020-08-20 10:30)
DX: H25.12 Age-related nuclear cataract, left eye (principal); Z96.1 Presence of intraocular lens; Z98.41 Cataract extraction status, right eye; H40.032 Anatomical narrow angle, left eye
CPT/HCPCS: 66984; V2632

== ENCOUNTER 2021-03-19 16:58 | Outpatient (REF) | payer MEDICARE, SELFPAY ==
[2021-03-19 21:28] LABS: ESR 26 mm/hr (0-30)
[2021-03-19 21:29] LABS: HCT 43.5 % (36.0-46.0); HGB 14.7 g/dL (11.2-15.7); MCH 32.2 pg (27.0-33.0); MCHC 33.8 % (32.0-36.0); MCV 95.2 fL (80-95); MPV 12.1 fL (8.0-11.0); Platelet Count 227 10^3/uL (130-400); RBC 4.57 10^6/uL (3.93-5.22); RDW 12.3 % (11.7-14.6); RDW-SD 42.7 fL; WBC 9.23 10^3/uL (4.4-10.8)
[2021-03-19 22:01] LABS: Anion Gap 12.2 mmol/L (3-11); BUN 12 mg/dL (7-18); CO2 26.8 mmol/L (21.0-32.0); Calcium 9.2 mg/dL (8.5-10.1); Calculated LDL 135 mg/dL (<100); Chloride 101 mmol/L (98-107); Cholesterol 208 mg/dL (<200); Estimated GFR 53.62 (mL/min/1.73m2); Glucose 185 mg/dL (74-106); HDL Cholesterol 41 mg/dL (40-60); Potassium 3.6 mmol/L (3.5-5.1); Sodium 140 mmol/L (136-145); TSH (W/Ref FT4) 3.43 uIU/mL (0.36-3.74); Triglyceride 163 mg/dL (<150)
[2021-03-19 22:03] LABS: Hemoglobin A1C 8.6 % (<5.7)
== END 2021-03-19 16:59 | disposition home or self-care (01) ==
LOC: NCHCN 16:58
PROVIDERS: PCP Nurse Practitioner Family; Visit Provider Physician Assistant
DX: E03.9 Hypothyroidism, unspecified (principal); R73.9 Hyperglycemia, unspecified; M35.3 Polymyalgia rheumatica; I10 Essential (primary) hypertension; E78.5 Hyperlipidemia, unspecified
CPT/HCPCS: 80048; 80053; 80061; 85027; 85652; 83036; 84443

== ENCOUNTER → 2021-05-29 10:50 | Outpatient (BNVA) | payer MEDICARE, SELFPAY | PROVIDERS: PCP Physician Assistant; Referring Provider Nurse Practitioner Family; Visit Provider Nurse Practitioner Gerontology | DX: N39.0 Urinary tract infection, site not specified (principal); N39.46 Mixed incontinence; I10 Essential (primary) hypertension | CPT/HCPCS: 81003; 99215 ==

== ENCOUNTER 2021-05-29 13:31 | Outpatient (REF) | payer MEDICARE, SELFPAY | END 2021-05-29 13:32 | disposition home or self-care (01) | LOC: LBN 13:31 | PROVIDERS: PCP Physician Assistant; Visit Provider Nurse Practitioner Gerontology | DX: N39.0 Urinary tract infection, site not specified (principal) | CPT/HCPCS: 87077; 87086; 87186 ==

== ENCOUNTER 2021-06-11 15:03 | Outpatient (REF) | payer MEDICARE, SELFPAY | END 2021-06-11 15:04 | disposition home or self-care (01) | LOC: LBN 15:03 | PROVIDERS: PCP Physician Assistant; Visit Provider Obstetrics & Gynecology | DX: N39.46 Mixed incontinence (principal) | CPT/HCPCS: 87086 ==

== ENCOUNTER 2022-01-28 08:43 | Outpatient (REF) | payer MEDICARE, SELFPAY ==
[2022-01-28 15:45] LABS: Hemoglobin A1C 6.1 % (<5.7)
[2022-01-28 15:49] LABS: ALT 52 U/L (14-59); AST 41 U/L (15-37); Albumin 3.8 g/dL (3.4-5.0); Alkaline Phosphatase 101 U/L (46-116); Anion Gap 11.8 mmol/L (3-11); BUN 20 mg/dL (7-18); Bilirubin, Total 0.6 mg/dL (0.2-1.0); CO2 27.2 mmol/L (21.0-32.0); CREATININE 0.8 mg/dL (0.55-1.02); Calcium 9.2 mg/dL (8.5-10.1); Calculated LDL 59 mg/dL (<100); Chloride 101 mmol/L (98-107); Cholesterol 140 mg/dL (<200); Glucose 131 mg/dL (74-106); HDL Cholesterol 51 mg/dL (40-60); Potassium 3.5 mmol/L (3.5-5.1); Sodium 140 mmol/L (136-145); Total Protein 8.1 g/dL (6.4-8.2); Triglyceride 151 mg/dL (<150)
== END 2022-01-28 08:44 | disposition home or self-care (01) ==
LOC: NCHCN 08:43
PROVIDERS: PCP Physician Assistant; Visit Provider Physician Assistant
DX: E03.9 Hypothyroidism, unspecified (principal); E11.9 Type 2 diabetes mellitus without complications; I10 Essential (primary) hypertension; E78.5 Hyperlipidemia, unspecified
CPT/HCPCS: 80053; 80061; 83036; 84443

== ENCOUNTER 2022-11-12 01:34 | Outpatient (CLI) | payer MEDICARE, SELFPAY ==
--- NOTE | 2022-11-12 10:45 | DI.RAD_ITS ---
Exam(s) XR LUMBAR SPINE COMPLETE EXAM: XR LUMBAR SPINE COMPLETE CLINICAL HISTORY: LBP, M54.50, OCCASIONAL RT-SIDED RADICULOPATHY. TECHNIQUE: 2D digital imaging was performed of the lumbar spine. Five images were obtained. AP, la teral, right oblique, left oblique and L5-S1 spot views were obtained. COMPARISON: No exams were available for comparison FINDINGS: BONES: No fracture or destructive lesion. There are endplate osteophytes at all levels of the lumbar spine particularly at L1-L2 through L3-L4. There are degenerative changes of the facets in the lumbar spine. DISKS: There is disc space narrowing at L2-3 and L3-L4. ALIGNMENT: Lumbar spinal alignment is within normal limits. No spondylolysis or spondylolisthesis. SOFT TISSUE: Atherosclerosis. There are surgical clips in the right upper quadrant of the abdomen. IMPRESSION: Moderate degenerative changes in the lumbar spine. DATA REPOSITORY: RADIATION DOSE DELIVERED:
== END 2022-11-12 01:54 ==
LOC: DI 01:35
PROVIDERS: PCP Physician Assistant; Visit Provider Physician Assistant
DX: M54.59 Other low back pain (principal); M47.816 Spondylosis without myelopathy or radiculopathy, lumbar region; M51.36 Other intervertebral disc degeneration, lumbar region
CPT/HCPCS: 72110

== ENCOUNTER 2023-01-02 00:24 | Outpatient (CLI) | payer MEDICARE, SELFPAY ==
--- NOTE | 2023-01-02 10:06 | DI.DEXA_ITS ---
Exam(s) XR DEXA BONE DENSITY W/WO JASON EXAM: XR DEXA BONE DENSITY W/WO JASON CLINICAL HISTORY: POSTMENOPAUSAL Z78.0 TECHNIQUE: HoloKanbox Horizon C densitometer analysis of left hip, lumbar spine and left forearm. Lat eral survey image of the thoracic and lumbar spine. COMPARISON: 2009 and 2016 FINDINGS: Lateral view of the thoracic and lumbar spine shows no evidence of compression fractures. Bone mineral density measurements of the lumbar spine correspond to a total T-score of -1.3,, consis tent with osteopenia. This is unchanged from 2017. 5.9 percent decrease compared to 2010 Bone mineral density measurements of the left hip correspond to a total T-score of -0.3. The femora l neck T-score is -1.2, in the osteopenic range. 5.2 percent decrease from 2017. 11.6 percent decr ease compared with 2010. The left forearm bone mineral density measurements correspond to a T-score of the distal 3rd of -2.5 , not significantly changed from prior exams.. IMPRESSION: Osteopenia of the lumbar spine and hip. Osteoporosis of the forearm.
== END 2023-01-02 00:44 ==
LOC: DI 00:25
PROVIDERS: PCP Physician Assistant; Visit Provider Physician Assistant
DX: Z78.0 Asymptomatic menopausal state (principal); M85.832 Other specified disorders of bone density and structure, left forearm; M85.09 Fibrous dysplasia (monostotic), multiple sites
CPT/HCPCS: 77080

== ENCOUNTER 2023-03-16 19:30 | Outpatient (REF) | payer MEDICARE, SELFPAY ==
[2023-03-16 17:09] LABS: ALT 45 U/L (14-59); AST 31 U/L (15-37); Albumin 4.1 g/dL (3.4-5.0); Alkaline Phosphatase 94 U/L (46-116); Anion Gap 11.2 mmol/L (3-11); BUN 12 mg/dL (7-18); Bilirubin, Total 0.8 mg/dL (0.2-1.0); CO2 25.8 mmol/L (21.0-32.0); CREATININE 0.9 mg/dL (0.55-1.02); Calcium 9.3 mg/dL (8.5-10.1); Calculated LDL 78 mg/dL (<100); Chloride 103 mmol/L (98-107); Cholesterol 163 mg/dL (<200); Estimated GFR 64.63 (mL/min/1.73m2); Glucose 125 mg/dL (74-106); HDL Cholesterol 51 mg/dL (40-60); Potassium 4.3 mmol/L (3.5-5.1); Sodium 140 mmol/L (136-145); TSH (W/Ref FT4) 1.46 uIU/mL (0.36-3.74); Total Protein 7.8 g/dL (6.4-8.2); Triglyceride 171 mg/dL (<150)
== END 2023-03-16 19:31 | disposition home or self-care (01) ==
LOC: NCHCN 19:30
PROVIDERS: PCP Physician Assistant; Visit Provider Physician Assistant
DX: E11.9 Type 2 diabetes mellitus without complications (principal); E03.9 Hypothyroidism, unspecified; R79.89 Other specified abnormal findings of blood chemistry; E78.5 Hyperlipidemia, unspecified
CPT/HCPCS: 80053; 80061; 83036; 84443

== ENCOUNTER 2023-05-07 10:29 | Emergency (ER) | payer MEDICARE, SELFPAY ==
[2023-05-07 10:45] VITALS: BP 143/74; PULSE 69; RESP 18; TEMP 36.7; O2SAT 97
--- NOTE | 2023-05-07 11:00 | DI.RAD_ITS ---
Exam(s) XR KNEE RT 3V AP,LAT,ATIF EXAM: XR KNEE RT 3V AP,LAT,ATIF CLINICAL HISTORY: medial knee pain for weeks. TECHNIQUE: 2D digital imaging was performed. Three views. COMPARISON: No exams were available for comparison FINDINGS: BONES: No acute fracture is present. No bony destructive lesion is seen. Small enthesophyte at quad riceps insertion. JOINTS: Moderate to severe narrowing of the medial femoral tibial joint space and periarticular spurr ing. No joint effusion is seen. SOFT TISSUE: Normal. 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 No acute abnormality. DATA REPOSITORY: RADIATION DOSE DELIVERED:
--- NOTE | 2023-05-07 11:01 | W.ED.GENAD ---
Discharge Plan Disposition Patient Disposition: Home Discharge Details Chief Complaint: Orthopedic Clinical Impression: Chronic pain of right knee Primary Care Provider: Bismark Lloyd ED Provider: Ben Echevarria Home Meds and New Rx's Prescriptions: No Action Rybelsus 3 mg tablet 3 mg PO DAILY Patient Comments: no longer taking levothyroxine 100 mcg capsule 100 mcg PO DAILY metoprolol ta-hydrochlorothiaz 1 EACH tablet 0.5 tab PO BID Patient Comments: atorvastatin 20 mg tablet 20 mg PO DAILY Patient Comments: TAKE ONE TABLET BY MOUTH EVERY DAY tramadol 50 mg tablet 50 mg PO TID Patient Comments: TAKE ONE TABLET BY MOUTH THREE TIMES A DAY - MAXIMUM DAILY DOSE = 3 TABLETS Discharge Instructions Instructions: Knee Pain (ED) Additional Instructions: At this time your x-ray shows no evidence of fracture but does show notable degeneration in your knee. Please use a hinged knee brace with activity for stabilization. Please apply Voltaren gel/diclofenac gel to the knee to help with pain. Please follow-up closely with your primary care provider about further discussion for other potential imaging. We have placed a physical therapy referral for you. We will contact you with an appointment time. If you notice any worsening of your symptoms, or any new symptoms such as vomiting, diarrhea, fever, chills, shortness of breath, chest pain, numbness, weakness, or fainting , please return immediately to the emergency department for reevaluation. Please follow up with your primary care provider as soon as possible for reassessment and reevaluation. As always, it was a pleasure participating in your medical care today. Stand Alone Forms: Physical Therapy Referral Referrals: Bismark Lloyd [Primary Care Provider] - Medical Decision Making 82-year-old female with a past medical history of high cholesterol, hypothyroidism, who presents today for evaluation of right knee pain. Patient states that for the last few months she has had mild pain in her right knee whenever she goes bowling or does significant activity. It is located in the medial aspect. It is worsened with movement and straightening her leg. She denies any falls or trauma. No other complaints at this time. She states that she has taken Tylenol occasionally and this does not touch the pain. Right knee demonstrates mild tenderness at the medial aspect of the knee, worse with valgus stressing, medial palpation, and Anita's test. No posterior pain. Walks with minimal limp. Concern for mild ligamentous injury versus chronic arthritis. We will get an x-ray, monitor closely and reassess. 12:33 PM X-ray results show evidence of severe degenerative changes in the medial femoral-tibial joint, no acute process. This is likely the cause of her pain. We will give a hinged knee brace, recommend close follow-up with her PCP to discuss potential further imaging. We will place a referral for physical therapy. Recommend Voltaren gel topically. Discussed red flags for which to return. I have extensively reviewed the treatment plan and discharge instructions with the patient. I have addressed all patient concerns at this time. The patient was made aware of what symptoms to monitor for that would warrant a return to the emergency department. Discussed the plan with the patient, they demonstrate verbal understanding and agreement with our assessment and plan at this time. The documentation in this chart was dictated using Frankly dictation software. Please excuse any dictation errors. FINDINGS: BONES: No acute fracture is present. No bony destructive lesion is seen. Small enthesophyte at quadriceps insertion. JOINTS: Moderate to severe narrowing of the medial femoral tibial joint space and periarticular spurring. No joint effusion is seen. SOFT TISSUE: Normal. 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 No acute abnormality. HPI General Date/Time Provider Initiated Documentation: 05/07/23 10:51. HPI Narrative: 82-year-old female with a past medical history of high cholesterol, hypothyroidism, who presents today for evaluation of right knee pain. Patient states that for the last few months she has had mild pain in her right knee whenever she goes bowling or does significant activity. It is located in the medial aspect. It is worsened with movement and straightening her leg. She denies any falls or trauma. No other complaints at this time. She states that she has taken Tylenol occasionally and this does not touch the pain. Related Data Home Medications Medication Instructions Recorded Confirmed metoprolol tartrate 50 0.5 tab PO BID 06/26/17 05/07/23 mg-hydrochlorothiazide 25 mg tablet levothyroxine 100 mcg capsule 100 mcg PO DAILY 03/13/21 05/07/23 semaglutide 3 mg tablet (Rybelsus) 3 mg PO DAILY 05/29/21 07/01/21 atorvastatin 20 mg tablet 20 mg PO DAILY 05/07/23 05/07/23 tramadol 50 mg tablet 50 mg PO TID 05/07/23 05/07/23 Allergies Allergy/AdvReac Type Severity Reaction Status Date / Time No Known Allergies Allergy Unverified 07/01/21 08:33 General Stated Complaint: Orthopedic FRANCHESCA: 4 Review of Systems All systems reviewed & are unremarkable except as noted in HPI and below PFSH All Active Problems (Updated 05/07/23 @ 12:37 by Ben Echevarria DO) Chronic pain of right knee (Acute) Fitting and adjustment of pessary (Acute) Recurrent UTI (Acute) Mixed stress and urge urinary incontinence (Acute) Medical History Anorexia Depression Diverticulosis Dyspnea Elevated blood sugar Elevated LFTs Hx of polymyalgia rheumatica pt. reports polymyalgia that she is on prednisone for Hyperlipidemia Hypothyroidism Mixed stress and urge urinary incontinence Night sweats Osteopenia Ovarian mass, left Polymyalgia rheumatica Skin lesion of face Tubular adenoma of colon Surgical History Cholecystectomy Colonoscopy - MAC (06/29/17) Social History Smoking/Tobacco Use Status: Former Tobacco Use Quit Date: 08/24/79 Smoking risk assessment performed?: Yes Alcohol Intake: current Alcohol Intake frequency: a few times a month Alcohol type: beer Drug use: Never Substance use type: does not use Details: alcohol: t-3. beer Do you feel safe at home: Yes Do you feel safe in your relationship?: Yes Female Reproductive History Menstrual Menopause type: surgical History History 4 Para 3 Hx # Term Pregnancies 3 Multiple births Hx # Pregnancies Ectopic pregnancies AB induced 1 Hx Number of Living Children AB spontaneous Exam Narrative Exam Narrative: 1.Const: Well-nourished, Well-developed, appearing stated age 2.Eyes: PERRL, no conjunctival injection, and symmetrical lids. 3.ENT: Atraumatic external nose and ears. Moist MM. Neck: Symmetric, trachea midline, No thyromegaly. 4.CVS: +S1/S2, No murmurs or gallops. Peripheral pulses 2+ and equal in all extremities. Brisk capillary refill in all extremities. 5.RESP: Unlabored respiratory effort. Clear to auscultation bilaterally. No wheezes rales or rhonchi 6.GI: Soft, Nontender/Nondistended, No hepatosplenomegaly. No guarding or rebound. 7.MSK: Right knee demonstrates mild tenderness at the medial aspect of the knee, worse with valgus stressing, medial palpation, and Anita's test. No posterior pain. Walks with minimal limp 8.Skin: Warm, Dry. No rashes or lesions. 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 Sensation grossly intact, no focal neurologic deficits. 10.Psych: (AAO) x3. Appropriate mood and affect Course Vital Signs Vital signs: Vital Signs Temperature 36.7 C 05/07/23 10:45 Pulse 69 05/07/23 10:45 Respiratory Rate 18 05/07/23 10:45 Blood Pressure 143/74 H 05/07/23 10:45 Pulse Oximetry 97 05/07/23 10:45 Temperature 36.7 C 05/07/23 10:45 Pulse 69 05/07/23 10:45 Respiratory Rate 18 05/07/23 10:45 Respiratory Effort Normal 05/07/23 10:51 Blood Pressure 143/74 H 05/07/23 10:45 Blood Pressure Position Sitting 05/07/23 10:45 Pulse Oximetry 97 05/07/23 10:45 Oxygen Delivery Method Room Air 05/07/23 10:45 Oxygen Flow Rate 0 05/07/23 10:45 Pain Level 3 05/07/23 10:45 Comment Pain with ambulation 6. 05/07/23 10:45
--- NOTE | 2023-05-09 08:09 | NUR.NOTE ---
Accessed chart to find out who the Physican was that treated PT. This was to complete the Ortho paperworkNursing Note:
== END 2023-05-07 12:57 | disposition home or self-care (01) ==
PROVIDERS: Emergency Provider Student in an Organized Health Care Education/Training Program; PCP Physician Assistant
DX: M25.561 Pain in right knee (principal); G89.29 Other chronic pain; M17.11 Unilateral primary osteoarthritis, right knee
CPT/HCPCS: 73562; 99283; 99282

== ENCOUNTER 2024-02-02 15:43 | Outpatient (REF) | payer MEDICARE, SELFPAY ==
[2024-02-02 15:51] LABS: ALT 34 U/L (14-59); AST 25 U/L (15-37); Albumin 3.7 g/dL (3.4-5.0); Alkaline Phosphatase 86 U/L (46-116); Anion Gap 8.8 mmol/L (3-11); BUN 13 mg/dL (7-18); Bilirubin, Total 0.5 mg/dL (0.2-1.0); CO2 27.2 mmol/L (21.0-32.0); CREATININE 0.9 mg/dL (0.55-1.02); Calcium 8.8 mg/dL (8.5-10.1); Calculated LDL 58 mg/dL (<100); Chloride 104 mmol/L (98-107); Cholesterol 145 mg/dL (<200); Estimated GFR 64.23 (mL/min/1.73m2); Glucose 145 mg/dL (74-106); HDL Cholesterol 50 mg/dL (40-60); Potassium 3.8 mmol/L (3.5-5.1); Sodium 140 mmol/L (136-145); TSH 2.44 uIU/Ml (0.36-3.74); Total Protein 7.3 g/dL (6.4-8.2); Triglyceride 185 mg/dL (<150)
[2024-02-02 15:55] LABS: Hemoglobin A1C 6.1 % (<5.7)
== END 2024-02-02 15:44 | disposition home or self-care (01) ==
LOC: NCHCN 15:43
PROVIDERS: PCP Physician Assistant; Visit Provider Physician Assistant
DX: E03.9 Hypothyroidism, unspecified (principal); E11.9 Type 2 diabetes mellitus without complications
CPT/HCPCS: 80053; 80061; 83036; 84443

== ENCOUNTER 2024-12-21 16:13 | Outpatient (REF) | payer MEDICARE, SELFPAY ==
[2024-12-21 15:34] LABS: Abs Immature Grans 0.02 10^3/uL (0.0-0.06); Absolute Basophil Count 0.06 10^3/uL (0.0-0.2); Absolute Monocyte Count 0.51 10^3/uL (0.1-0.8); Absolute Neutrophil Count 3.43 10^3/uL (1.2-6.7); Basophils % 0.9 %; HGB 14.1 g/dL (11.2-15.7); Immature Grans % 0.3 %; Lymphocytes % 37.2 %; MCHC 33.6 % (32.0-36.0); MCV 95 fL (80-95); MPV 10.7 fL (8.0-11.0); Monocytes % 7.6 %; Platelet Count 237 10^3/uL (130-400); RBC 4.41 10^6/uL (3.93-5.22); RDW 11.8 % (11.7-14.6); RDW-SD 40.9 fL; WBC 6.72 10^3/uL (4.4-10.8)
[2024-12-21 16:26] LABS: Anion Gap 6.5 mmol/L (3-11); BUN 15 mg/dL (7-18); CO2 30.5 mmol/L (21.0-32.0); Calcium 9.2 mg/dL (8.5-10.1); Calculated LDL 84 mg/dL (<100); Chloride 107 mmol/L (98-107); Cholesterol 173 mg/dL (<200); Estimated GFR 56.25 (mL/min/1.73m2); Glucose 116 mg/dL (74-106); HDL Cholesterol 53 mg/dL (>or=50); Potassium 4.6 mmol/L (3.5-5.1); Sodium 144 mmol/L (136-145); Triglyceride 181 mg/dL (<150)
[2024-12-21 17:39] LABS: Hemoglobin A1C 6.1 % (<5.7)
== END 2024-12-21 16:14 | disposition home or self-care (01) ==
LOC: NCHCN 16:13
PROVIDERS: PCP Physician Assistant; Visit Provider Physician Assistant
DX: E78.5 Hyperlipidemia, unspecified (principal); E11.9 Type 2 diabetes mellitus without complications; I10 Essential (primary) hypertension
CPT/HCPCS: 80048; 80061; 83036; 85025